=== PATIENT | female | born 1980 | race Caucasian/White ===

== ENCOUNTER 2023-08-07 14:15 | Day surgery (SDC) | payer OTHER, SELFPAY ==
--- NOTE | 2023-08-07 | PATH_ITS ---
[facility] Accession Number: [id number] No. of containers..01 Tissue . 01 Material submitted: . rectum - RECTAL POLYP . 01 Diagnosis: RECTAL POLYP: Tubular adenoma. [facility] 08/09/2023 1539 Local . 01 Electronically signed: . Blanco Burris MD, Pathologist NPI- [id number] . 01 Gross description: . Received in formalin with two patient identifiers and rectal polyp, is a single espinal soft tissue fragment, 0.3 cm in greatest dimension. Submitted in A1. ([id number]) /MRV 08/09/2023 1539 Local . 01 Pathologist provided ICD-10: D12.8 . 01 CPT . 644440 Specimen Comment: A courtesy copy of this report has been sent to [phone] Performed at: [address] [id number] MD Blanco Burris MD Phone: [phone]
[2023-08-07 15:27] VITALS: BP 113/60; PULSE 80; RESP 16; TEMP 36.6; O2SAT 100
--- NOTE | 2023-08-07 16:13 | PM.HP.1 ---
History of Present Illness History of Present Illness Date Patient Seen: 08/07/23 Time Patient Seen: 16:13 Chief complaint: Colonoscopy Narrative: 43-year-old female here for colon cancer screening. No family history of colon cancer. Asymptomatic. [facility] Social History Smoking Status: Never smoker alcohol intake: former Meds Home Medications and Allergies Home Medications Medication Instructions Recorded Confirmed Type terbinafine HCl 250 mg tablet 250 mg PO DAILY 08/07/23 08/07/23 History Allergies Allergy/AdvReac Type Severity Reaction Status Date / Time acetaminophen [From Percocet] AdvReac Rash Verified 08/07/23 15:25 oxycodone [From Percocet] AdvReac Rash Verified 08/07/23 15:25 Review of Systems Review of Systems ROS: Yes All systems reviewed with the patient and are negative except as otherwise documented Exam Vital Signs (past 8 hours): - 08/07/23 15:27 Temperature 97.9 F Pulse Rate 80 Respiratory Rate 16 Blood Pressure 113/60 Pulse Oximetry 100 Oxygen Delivery Method Room Air Oxygen Delivery Method Room Air Const General: cooperative HENMT Head: normal to inspection Eyes General: appearance normal, both eyes and all related structures Neck Neck: normal visual inspection Chest Chest: normal inspection of the chest Resp Effort & Inspection: normal respiratory effort Cardio Rate: regular rate GI Inspection: normal to inspection Skin General: no rashes or lesions noted Neuro General: patient alert and patient awake Extrem General: normal to inspection and no pedal edema Psych Appearance: grossly normal Assessment & Plan Assessment & Plan narrative: 43-year-old female indicated for colon cancer screening. Colonoscopy is pursued today.
--- NOTE | 2023-08-07 17:00 | PM.PREOP ---
Pre-operative Note Interval Note History & Physical reviewed/Exam performed by Physician: Yes Changes to H&P: No ASA Class (for procedural sedation): II
--- NOTE | 2023-08-07 17:24 | PM.OP.COLON ---
Operative Date/Time/Diagnoses Date of procedure: 08/07/23 Time of procedure: 17:25 Pre-op diagnosis: Colon cancer screening Post-op diagnosis: same Procedure & Clinicians Study performed: Colonoscopy with cold snare polypectomy Same procedure as scheduled: Yes Indications: Colon cancer screening Surgeon: Neftaly Amor Procedure Notes SCOAP/Timeout: Done Procedure in detail: After the risks and benefits were explained, written and verbal informed consent was obtained. The patient was brought into the procedure room and placed into the left lateral decubitus position. Please see anesthesia notes for sedation details. Digital rectal examination was accomplished. The scope was introduced into the patient and advanced under direct visualization to the cecum as identified by the appendiceal orifice and ileocecal valve. The scope was slowly withdrawn to carefully examine the mucosa for any defects or lesions. Comprehensive imaging was accomplished throughout the rectum including the dentate line. The colon was decompressed, the scope was then removed from the patient who tolerated the procedure well. Pediatric colonoscope Bowel prep adequate Scope withdrawal time: 9 minutes Sedation minutes: 19 Complications: none Impression: The colon was moderately tortuous. Cecal navigation was somewhat challenging. There was a diminutive 3 mm polyp in the rectum removed with cold snare. Otherwise no significant mucosal pathology was appreciated throughout. Endoscopic diagnosis 1. Small rectal polyp 2. Otherwise visually unremarkable colonoscopy Post-procedure Plan for aftercare: 1. Await histology. 2. Repeat colonoscopy timing will be contingent on histopathology results. Disposition: PACU
[2023-08-07 17:27] VITALS: BP 104/67; PULSE 74; RESP 17; TEMP 37.4; O2SAT 99
[2023-08-07 17:32] VITALS: BP 102/66; PULSE 77; RESP 20; O2SAT 99
[2023-08-07 17:36] VITALS: BP 109/72; PULSE 73; RESP 17; O2SAT 99
[2023-08-07 17:43] VITALS: BP 106/65; PULSE 67; RESP 12; TEMP 36.8; O2SAT 100
== END 2023-08-07 18:00 | disposition home or self-care (01) ==
PROVIDERS: Referring Provider Internal Medicine Gastroenterology; Visit Provider Internal Medicine Gastroenterology
PROC: 0DJD8ZZ Inspection of Lower Intestinal Tract, Via Natural or Artificial Opening Endoscopic (ICD-10-PCS; CPT 45378; principal; 2023-08-07 15:30)
DX: Z12.11 Encounter for screening for malignant neoplasm of colon (principal); D12.8 Benign neoplasm of rectum
CPT/HCPCS: 45385; J2704